=== PATIENT | male | born 1955 | race Caucasian/White ===

== ENCOUNTER → 2017-03-13 | Outpatient (CLI) | payer MEDICARE, OTHER ==
[~2017-03-13] MED LIST: ALBUTEROL17 GM INH; ALDACTONE PO; AMARYL2 MG PO; AMIODARONE PO; AMOXICILLIN500 M1 PO; BARACLUDE0.5 MG PO; BROMPHED PO; BUMEX1 MG PO; CARDIZEM SR PO; CARTIA XT120 MG PO; COLACE; CORDARONE200 M1 PO; COUMADIN PO; COUMADIN2.5 MG PO; COUMADIN5 MG PO; DIABETIC MED; DIGOX0.25 MG PO; FUROSEMIDE40 MG PO; GLIMEPIRIDE2 MG PO; GLUCOPHAGE500 M1 PO; GLUCOPHAGE500 MG PO; JANUVIA PO; K-DUR20 ME2 PO; K-TAB ER20 MEQ PO; KCL PO; LANOXIN PO; LISINOPRIL10 MG PO; LISINOPRIL2.5 MG PO; LISINOPRIL5 MG PO; LOVENOX100 MG/1 M SUBQ; METFORMIN PO; METOPROLOL SUC100 MG PO; METOPROLOL TAR25 MG PO; NICOTINE TRANSD14 MG EXT; NICOTINE TRANSD21 MG EXT; NORCO1 TAB 10/3; PROTONIX PO; TOPROL XL PO; ZITHROMAX PO; ZOLOFT PO; [UNRECOGNIZED DRUG - REMARK]
--- NOTE | ~2017-03-13 | US5 ---
[facility] A Service of [facility] & [facility] RADIOLOGY TEXT RESULTS PATIENT: ANGEL BILLY LOCATION: [facility] : 54 UNIT #: [id number] AGE: [address]: Waqar Monaco MD SEX: M ORDER DR: [id number] [facility] [address] [place], [place] [address] [id number] MR#: [id number] Acc #: [id number] NAME: ANGEL BILLY. : 1955 SEX: M STUDY DATE/TIME: 03/13/2017 7:40 UNIT: [facility] ROOM: STUDY DESCRIPTION: US Abdominal Complete Attending Physician: Waqar Monaco III, M.D. Referring Physician: Waqar Monaco III, M.D. Ordering Physician: Waqar Monaco III, M.D. Primary Care Physician: Leo Kerns M.D. MEDICAL IMAGING REPORT This report is preliminary unless electronic signature is present EXAM Complete abdominal ultrasound COMPARISON February 16, [address] abdomen and pelvis dated January 13, 2009. INDICATION 61-year-old male with generalized abdominal pain for 7 months. History of hepatitis C virus with recent completion of 12-week treatment yesterday. FINDINGS The aorta is normal in caliber at the level of the liver measuring up to 2.9 cm. Expected arterial flow was demonstrated in the aorta. They aorta is normal in caliber at its mid aspect measuring 2.1 cm. The IVC is patent at the level of the liver. Pancreas is not well seen due to shadowing from bowel gas. Hepatic contour appears irregular, suggestive of cirrhosis. There is a trace right pleural effusion and a small amount of perihepatic ascites. The liver is echogenic consistent with steatosis. Portal architecture is not well seen. There is suspected flow direction waveform in the main portal vein. The gallbladder is contracted, limiting evaluation. There is apparent recanalization of the umbilical vein consistent with portal hypertension. There is mild hepatomegaly with hepatic length of 16.6 cm. No pericholecystic fluid is seen. No shadowing cholelithiasis. Gallbladder wall is thickened at 5 mm. Second measurement gives 6 mm for gallbladder wall thickness. Common bile duct caliber is normal at 4 mm. Kidneys are normal in size and cortical thickness. No evidence of hydronephrosis. Top normal size of the spleen measuring up to 14.7 cm length. Second measurement of the spleen is 16.3 cm in length, consistent with mild splenomegaly. Expected flow direction in the patent splenic vein. Small amount of perisplenic ascites. IMPRESSION 1. Findings most consistent with cirrhosis and portal hypertension [facility] A Service of [facility] RADIOLOGY TEXT RESULTS PATIENT: ANGEL BILLY LOCATION: [facility] : 54 UNIT #: [id number] AGE: [address]: Waqar Monaco MD SEX: M ORDER DR: including trace ascites in both upper quadrants of the abdomen. There is mild splenomegaly and recanalization of the umbilical vein. 2. Trace right pleural effusion. 3. Urinary bladder is not imaged. The gallbladder appears mildly contracted. There is diffuse gallbladder wall thickening measuring up to 6 mm which was not appreciated previously. This is a finding which can be seen in portal hypertension and viral hepatitis. There is no evidence of cholelithiasis and biliary caliber is normal. Clinical correlation to exclude signs of acute cholecystitis recommended. If indicated nuclear medicine biliary scan could be performed. Dictated by... Srinivas Trujillo M.D. THIS IS AN ELECTRONICALLY VERIFIED REPORT Srinivas Trujillo M.D. at 03/18/2017 11:48 AM AL/benja TD: 03/14/2017 00:08 JOB #: [id number] MEDICAL IMAGING REPORT Page 1 of 1 COPY
== END | disposition home or self-care (01) ==
LOC: CGUS 07:10
DX: B18.2 Chronic viral hepatitis C (principal); R16.1 Splenomegaly, not elsewhere classified; K82.8 Other specified diseases of gallbladder
CPT/HCPCS: 76700

== ENCOUNTER 2017-03-16 20:28 | Inpatient (IN) | payer MEDICARE, OTHER ==
[~2017-03-16] VITALS: Ht 172.7 cm; Wt 100.0 kg
--- NOTE | ~2017-03-16 | CO ---
Unit #: [id number] #: [id number] Patient: ANGEL BILLY [id number] [address] [place], [place] [address] [id number] I MR#: [id number] NAME: ANGEL BILLY. ROOM: 332 Age: 61 Sex: M Admission Date: 03/17/2017 : 1955 Attending Physician: Ana Rios M.D. Primary Care Physician: Leo Kerns M.D. Consultation Date: 03/17/2017 CONSULTATION REPORT BRIEF HISTORY The patient is a 53-year-old gentleman, who presents with a 4-day history of abdominal pain. His presenting complaint is chest pain, but says abdominal pain in the right lower quadrant to right flank. He describes it as crampy, nonradiating. Some nausea. No vomiting. No diarrhea. No blood per rectum. No hematemesis. No fevers or chills. PAST MEDICAL HISTORY Cardiac dysfunction with mitral valve replacement, pacemaker AICD. Also hypertension and hepatitis C with cirrhosis. MEDICATIONS Glucophage, Coumadin, Cordarone, Toprol, lisinopril. SOCIAL HISTORY No smoking. No alcohol. FAMILY HISTORY Negative for GI malignancy. REVIEW OF SYSTEMS No cardiopulmonary complaints at this time. Else, 10 systems reviewed and negative. PHYSICAL EXAMINATION GENERAL: He is awake, alert, appropriate, currently afebrile. HEENT: Unremarkable. NECK: Supple. No JVD. Trachea midline. LUNGS: Clear to auscultation. Bilateral breath sounds symmetric. CARDIOVASCULAR: Regular rate and rhythm. ABDOMEN: Mildly distended. There is no rebound. No masses palpable. No hernias. EXTREMITIES: No clubbing, cyanosis, or edema. DIAGNOSTIC STUDIES LABORATORY RESULTS: Show white count of 4, hemoglobin of 11.1. Chemistries are normal other than mild elevation of AST and alkaline phosphatase. Bilirubin is normal. INR is 1.3. IMAGING STUDIES: Ultrasound shows cirrhosis. No gallstones. No gallbladder thickening. ASSESSMENT Right lower quadrant abdominal pain. Doubt cholecystitis. Unit #: [id number] #: [id number] Patient: ANGEL BILLY PLAN Recommend HIDA scan. Would not perform with CCK. The patient is at high risk for elective cholecystectomy secondary to cirrhosis. We will consider EGD. Dictated by... Nikole Reyes/susanna TD: 03/17/2017 11:38 JOB #: [id number] CONSULTATION REPORT Page 1 of 1 X Helio Whaley MD X CONSULTATION REPORT
--- NOTE | ~2017-03-16 | CO ---
Unit #: [id number] #: [id number] Patient: ANGEL BILLY [id number] [address] [place], [place] [address] [id number] I MR#: [id number] NAME: ANGEL BILLY. ROOM: 332 Age: 61 Sex: M Admission Date: 03/17/2017 : 1955 Attending Physician: Walker Tobar M.D. Primary Care Physician: Leo Kerns M.D. Consultation Date: 03/17/2017 CONSULTATION REPORT REASON FOR CONSULTATION Acute on chronic systolic congestive heart failure and some atypical chest pain. HISTORY OF PRESENT ILLNESS This is a 61-year-old white male who is well known to Dr. Pepe, has a history of severe nonischemic cardiomyopathy, on his last echo is ejection fraction was 15% to 20%. The patient has a history of mechanical mitral valve replacement back in 1999 and permanent atrial fibrillation is on anticoagulation. The patient also has liver cirrhosis and hepatitis C. He is diabetic, referred smoker, patient came in with abdominal pain and after he arrived he said he had some pain in his left axillary region. According to the patient, he had been doing fairly well recently and he has not drank any alcohol in some time. The patient developed right quadrant pain, especially in the right upper quadrant. Yesterday he said it was waxing and waning. He had associated symptoms of some slight shortness of breath. He denies any nausea or vomiting. He has not had any palpitations, no dizziness, presyncope, or syncope. No cough, fever or chills. The patient states he has been compliant with his medical regimen. He follows his liver doctor. In the emergency room, in reference to his pain under the left axilla region, he denies any radiation of the pain in his substernal chest wall but it is in the neck, bilateral jaw, shoulders, arms or elbow. He denies any palpitations, no dizziness, presyncope or syncope. No recent cough, fever, or chills. In the emergency room, patient's blood pressure was 127/86, heart rate 94, respirations 16, temperature 98.5, O2 sat was 94% on room air. His EKG shows 2:1 atrial flutter with ventricular rates 125 BPM. The patient's initial cardiac enzymes are negative. His BMP is 322. His creatinine is 1.2. Patient's WBCs are 4.4, hemoglobin down to 10 and platelets are 75. Patient's had a CT of the abdomen and pelvis, which showed bilateral pleural effusions, slightly larger than a few days ago, also with cirrhosis with portal hypertension and splenomegaly. Edematous gallbladder. Patient was given Lasix 40 mg IV and will be admitted with acute on chronic systolic heart failure and evaluate for a cholecystitis and his abdominal pain. Cardiology consult assists with evaluation and management. PAST MEDICAL HISTORY 1. Severe nonischemic cardiomyopathy with LVEF of 15% to 20%. 2. History of mechanical mitral valve replacement in 1999. 3. Prominent atrial fibrillation. Unit #: [id number] #: [id number] Patient: ANGEL BILLY 4. September 2013, 2D echo, LVEF of 15% to 20% with mechanical mitral valve not well visualized. Moderate tricuspid regurgitation and mild aortic regurgitation. Mild to moderate pulmonic regurgitation with elevated RVSP 40 to 50 mmHg. 5. History of nonsustained ventricular tachycardia. 6. History of liver cirrhosis and hepatitis C. 7. Cardiac cath back in 1999 showed no blockages. 8. Stress test, a few years since the mitral valve replacement, was told normal. Details unavailable. 9. TIA versus a small stroke about two years after his mitral valve replacement with minimal residual. 10. Diabetes mellitus type 2. 11. Reformed smoker. 12. He denies alcohol abuse. PAST SURGICAL HISTORY Mitral valve replacement and AICD implantation. FAMILY HISTORY Has had coronary artery disease in his father. HOME MEDICATIONS Glucophage 500 mg p.o. twice daily; Januvia 100 mg p.o. daily; Coumadin 5 mg p.o. daily, except not on Friday; metoprolol 150 mg p.o. twice daily; lisinopril 10 mg p.o. daily; Cartia XT 120 mg p.o. twice daily; entecavir 0.5 mg p.o. daily; furosemide 40 mg p.o. daily. ALLERGIES No known drug allergies. SOCIAL HISTORY The patient lives in his home alone. He quit smoking about a year and a half ago and states that he has been a long time, no drink, nonalcohol use and denies illicit drug abuse. He had previously smoked one pack of cigarettes a day since he was a teenager. REVIEW OF SYSTEMS See details on HPI. PHYSICAL EXAMINATION GENERAL: Mr. Billy is a 61-year-old white male in no acute respiratory distress. He is awake, alert and oriented. VITAL SIGNS: Blood pressure currently is 119/84, respirations 18, heart rate is 122, temperature is 98.1, O2 sats 97% on room air. NECK: Trachea midline. No thyromegaly. No lymphadenopathy. Normal carotid upstrokes. No jugular venous distention. HEART: S1 and S2. Regular rate and rhythm, except he is in atrial 2:1 flutter. ABDOMEN: Soft, slightly firm, distended, tenderness with palpating right quadrant area. EXTREMITIES: Pedal pulses are palpable. 1+ pedal edema. DIAGNOSTIC STUDIES LABORATORY STUDIES: Glucose is 94, BUN 22, creatinine 1.2. EGFR is 64.4, sodium 133, potassium 3.7, chloride 100, CO2 27, calcium 9.2, total protein 6.2, albumin 3.5, bili total 1.2, AST 39, ALT 26, and alk phos is 152. Lipase is 24, BNP 322, WBC are 3.7, hemoglobin 10.0, hematocrit 30.5 and platelets 75. CK-MB is less than 1.0. Troponin less than 0.05. Unit #: [id number] #: [id number] Patient: ANGEL BILLY ProTime is 14.1 with an INR of 1.3. IMAGING STUDIES: Chest x-ray shows cardiomegaly, some mild pleural effusion in the left lateral lungs. CT of abdomen and pelvis shows bilateral pleural effusions, slightly larger from compared 03/11/2017 with consolidations in the lower lobes, probable due to atelectasis, cirrhosis with portal hypertension and splenomegaly. Edematous gallbladder. CARDIOLOGY STUDIES: EKG shows atrial flutter with a 2:1 conduction with ventricular rate of 122 BPM. IMPRESSION 1. Abdominal pain, questionable cholecystitis. 2. Acute on chronic systolic congestive heart failure. 3. History of nonischemic cardiomyopathy, left ventricular ejection fraction of 15% to 20%. 4. History of mechanical and mitral valve replacement. 5. Automatic implantable cardioverter defibrillator implantation. 6. Subtherapeutic INR. 7. History of nonsustained ventricular tachycardia. 8. History of elevated cirrhosis and hepatitis C. 9. Last cardiac catheterization in 2000 was normal. 10. Previous transient ischemic attack versus a small stroke, without residual. 11. Diabetes mellitus type 2. 12. Reformed smoker. PLAN 1. Cardiology consult assisted with evaluation and management. Continue to gently diurese with IV Lasix. Strict intake, output and daily weights. Reinforce 1800 mL fluid restriction. 2. Continue to monitor cardiac enzymes and EKG. So far his cardiac enzymes have been negative. Patient has a little bit of atypical chest pain on his left anterior chest wall without radiation and it resolved. 3. Patient will continue to monitor but, however, will hold off on any ischemic heart disease, workup since it was somewhat atypical and he was treating him for congestive heart failure. 4. Patient's INR is subtherapeutic and will start on Lovenox until his INR is in the therapeutic range for his valve. The Coumadin is on hold; however, because of possible GI workup. He is planned for a HIDA scan of his gallbladder today and EGD tomorrow. 5. Provide CHF eduction with patient. 6. If his gallbladder is unremarkable maybe, possibly he may get to be discharged home tomorrow. 7. Further recommendations pending with Dr. Pepe. 8. As far as his atrial flutter, continue the patient on his metoprolol, which is 150 mg p.o. twice daily, along with his cardiac XT 120 mg twice daily. Thank you very much for allowing us to assist in his care. Unit #: [id number] #: [id number] Patient: ANGEL BILLY Dictated by... Scott BainsPLazaraRLazaraNNikole Patrick/beth TD: 03/18/2017 06:42 JOB #: [id number] CONSULTATION REPORT Page 1 of 1 X Ivory Tirado APRN CONSULTATION REPORT
--- NOTE | ~2017-03-16 | CT2 ---
[facility] A Service of [facility] & [facility] RADIOLOGY TEXT RESULTS PATIENT: ANGEL BILLY LOCATION: C3A 332-01 : 53 UNIT #: [id number] AGE: [address]: Walker Tobar MD SEX: M ORDER DR: [id number] [facility] [address] [place], [place] [address] [id number] I MR#: [id number] Acc #: [id number] NAME: ANGEL BILLY. : 1955 SEX: M STUDY DATE/TIME: 03/16/2017 23:08 UNIT: A U ROOM: [facility] STUDY DESCRIPTION: CT Abd and Pelv W Cont Attending Physician: Walker Tobar M.D. Ordering Physician: Helio Lo M.D. Primary Care Physician: Leo Kerns M.D. MEDICAL IMAGING REPORT This report is preliminary unless electronic signature is present EXAM Abdomen and pelvis CT 03/16 at 23:08. INDICATIONS Right lower quadrant pain that started today. Foot swelling as well. History of hepatitis C and cirrhosis. TECHNIQUE Axial images were obtained through the abdomen and pelvis following oral and IV contrast administration. Multiplanar reformats were obtained. This CT exam was performed with one or more of the following radiation dose reduction techniques: Automatic exposure control, adjustment of mA and/or kV according to patient size, and iterative reconstruction. COMPARISON Comparison is made with 01/13/2009. FINDINGS Abdomen: There are bilateral pleural effusions, left greater than right. These are slightly worsened as compared with chest CT of 03/11/2017. Consolidations in the lower lobes are probably due to compressive atelectasis. Correlate clinically to exclude pneumonia. Gallbladder once again has a thickened wall. This is unchanged from 03/11/2017. This may simply be due to the patient's liver disease. If cholecystitis is of concern, consider HIDA scan. Liver demonstrates a cirrhotic morphology. No discrete liver mass is seen. The spleen remains enlarged. There is a right lower pole renal cyst. The GI tract is within normal limits. Pelvis: The appendix is normal. The remainder of the GI tract is normal as well. Urinary bladder is normal. There is a trace amount of free fluid. IMPRESSION [facility]. [facility] A Service of [facility] & [facility] RADIOLOGY TEXT RESULTS PATIENT: ANGEL BILLY LOCATION: C3A 332-01 : 53 UNIT #: [id number] AGE: [address]: Walker Tobar MD SEX: M ORDER DR: 1. Bilateral pleural effusions, slightly larger as compared with chest CT from 03/11/2017. Consolidations in the lower lobes are probably due to atelectasis but pneumonia should be excluded clinically. 2. Cirrhosis with portal hypertension and splenomegaly. No focal liver lesion is seen. 3. Edematous gallbladder as seen on recent chest CT as well. This may simply be the result of the patient's liver disease. If acute cholecystitis is of concern clinically, consider HIDA scan for further evaluation. 4. Trace amount of free fluid in the abdomen and pelvis. 5. GI tract including the appendix is within normal limits. ADDENDUM There are some shotty retroperitoneal lymph nodes which are not significantly changed from the 2009 study. Dictated by... Raul Almanza Jr., M.D. THIS IS AN ELECTRONICALLY VERIFIED REPORT Raul Almanza Jr., M.D. at 03/17/2017 9:09 PM DEEDEE/nola TD: 03/17/2017 10:15 JOB #: [id number] MEDICAL IMAGING REPORT Page 1 of 1 COPY
--- NOTE | ~2017-03-16 | HP ---
Unit #: [id number] #: [id number] Patient: ANGEL BILLY [id number] [address] [address] [id number] MR#: [id number] NAME: ANGEL BILLY. ROOM: 332 Age: 61 Sex: M Admission Date: 03/17/2017 : 1955 Attending Physician: Walker Tobar M.D. Primary Care Physician: Leo Kerns M.D. HISTORY AND PHYSICAL CHIEF COMPLAINT Abdominal pain and atypical chest pain. HISTORY OF PRESENT ILLNESS This is a 61-year-old male with multiple medical problems, including coronary artery disease, atrial fibrillation, mechanical mitral valve replacement, severe nonischemic cardiomyopathy, hyperlipidemia, liver cirrhosis and hepatitis C, diabetes mellitus. Came because of epigastric pain. The patient has been having this right abdominal pain, epigastric pain for the last 4 days. It was associated with nausea. No vomiting. He did not have any diarrhea. No blood in the stool and no black colored stool. According to the patient, at this time he has no pain and he would like to eat. He is not complaining of any chest pain either. He did have slight pain in the left chest area, also, and he was worried about his heart and wanted to make sure there was no heart problem. His legs have been swelling for the last few days, worse than normal. The patient was found to have sinus tachycardia and bilateral pleural effusion and was admitted. PAST MEDICAL HISTORY 1. The patient has significant coronary artery disease. 2. Atrial fibrillation. 3. Valvular heart disease status post mechanical mitral valve replacement in 1999. 4. Anticoagulation therapy with Coumadin. 5. Congestive heart failure with nonischemic cardiomyopathy with ejection fraction of 25% to 30%. 6. History of AICD placement in 2013. 7. History of hepatitis C. 8. History of cirrhosis. 9. Hyperlipidemia. PAST SURGICAL HISTORY 1. History of mitral valve replacement in 1999. 2. History of AICD placement in 2013. ALLERGIES No known drug allergies. SOCIAL HISTORY The patient has a past history of smoking; quit 2 years ago. No history of alcohol abuse or drug abuse. FAMILY HISTORY Unit #: [id number] #: [id number] Patient: BILLY,ANGEL O Father had coronary artery disease. REVIEW OF SYMPTOMS Denies any fever, chills or rigors. No recent weight gain or weight loss. No headache. No dizziness. No syncopal episode. No chest pain at this time, but he did have some substernal chest discomfort earlier before admission. No palpitations. No dizziness. He does not complain of shortness of breath. No complaint of diarrhea or constipation. He does complain of bilateral leg swelling. MEDICATIONS 1. Glucophage 500 mg b.i.d. 2. Januvia 100 mg daily. 3. Coumadin 5 mg daily. 4. Metoprolol 150 mg b.i.d. 5. Lisinopril 10 mg daily. 6. Cartia 120 mg b.i.d. 7. Baraclude 0.5 mg daily. 8. Furosemide 14 mg daily. PHYSICAL EXAMINATION GENERAL: The patient is being evaluated in room 332. Seems to be stable. No respiratory distress. VITAL SIGNS: Blood pressure 119/83, respiratory rate 20, pulse 123, temperature 98.1, oxygen saturation 97%. HEENT: Head is normocephalic. Eye movements are normal. NECK: Neck is supple. No JVD. RESPIRATORY: Chest has fair air entry. Decreased at the bases. Rales are present. CVS: S1, S2 positive. Mechanical valve is heard. ABDOMEN: Soft. At this time no tenderness. No rigidity. No rebound. EXTREMITIES: Bilateral pedal edema is present. FARM [employer]: Awake, alert, oriented x3. No focal neurologic deficits. DIAGNOSTIC STUDIES LAB WORKUP: WBC 3.7, hemoglobin 10, hematocrit 30.5, platelet count 75. Sodium 133, potassium 3.7, chloride 100, BUN 22, creatinine 1.2. BNP 322. IMAGING: CT scan of the abdomen and pelvis was done that showed bilateral pleural effusion and cirrhosis, edematous gallbladder. ASSESSMENT AND PLAN 1. The patient is being admitted to telemetry unit with abdominal pain, rule out cholecystitis, although unlikely. Hepato-iminodiacetic acid scan has been ordered. [facility] has been consulted. Pain management and antiemetic as needed. 2. Acute on chronic systolic congestive heart failure with ejection fraction of 15% to 20%. IV Lasix is being started. Strict ins and outs. Lovenox 1 mg per kg subcu b.i.d. is being started. Dr. Pepe has been consulted. 3. Atrial flutter with rapid ventricular rate. The patient did not receive his beta-blockers in the morning because of NPO. Medications will be adjusted. 4. Anticoagulation therapy, which is subtherapeutic. That is why the patient is being started on Lovenox 1 mg/kg body weight subcu b.i.d. We are holding Coumadin in case the patient requires any surgical procedure. 5. Diabetes mellitus type 2. Continue Accu-Cheks a.c./h.s. with insulin Unit #: [id number] #: [id number] Patient: ANGEL BILLY sliding scale low-dose protocol. The plan of care has been discussed with the patient at length. Dictated by Nikole Priest/denzel TD: 03/17/2017 11:14 JOB #: [id number] HISTORY AND PHYSICAL Page 1 of 1 X Ana Rios MD X HISTORY AND PHYSICAL
--- NOTE | ~2017-03-16 | OR ---
Unit #: [id number] #: [id number] Patient: ANGEL BILLY [id number] [address] [place], [place] [address] [id number] I MR#: [id number] NAME: ANGEL BILLY. ROOM: [facility] Date of Procedure: 03/18/2017 Admission Date: 03/17/2017 Surgeon: Angel Luis Ramirez M.D. : 1955 Attending Physician: Ana Rios M.D. Primary Care Physician: Leo Kerns M.D. OPERATIVE REPORT PREOPERATIVE DIAGNOSIS Epigastric pain. POSTOPERATIVE DIAGNOSIS Epigastric pain. PROCEDURE PERFORMED 1. Esophagogastroduodenoscopy. 2. Biopsy of antrum for Helicobacter pylori testing and pathology. ANESTHESIA Monitored anesthesia care. FINDINGS The patient was found to have moderate diffuse gastritis. SPECIMENS Sent to pathology. COMPLICATIONS None apparent. CONDITION The patient tolerated the procedure well. INDICATIONS FOR PROCEDURE The patient is a 62-year-old white male with a history of cirrhosis. He presents at this time with epigastric pain, which has improved dramatically. He had evaluation of his gallbladder and had evaluation by CT scan with no significant findings. A HIDA scan showed the gallbladder to fill normally. He presents at this time for evaluation by upper endoscopy. DESCRIPTION OF PROCEDURE After obtaining informed consent, the patient was brought to the endoscopy suite and after adequate monitored anesthesia care, had the endoscope placed through the mouth into the upper esophagus under direct vision. It was advanced to the second portion of the duodenum without difficulty with lumen always in view. The duodenum was normal as was duodenal bulb. The pylorus opened normally. On pulling back into the stomach, there was moderate diffuse gastritis present. A biopsy was obtained from the antrum for Helicobacter pylori testing as well as pathology. On retroflexion Unit #: [id number] #: [id number] Patient: ANGEL BILLY back to the GE junction, there was no abnormality seen in the proximal third, middle third, or incisura other than moderate gastritis. The scope was pulled back above the GE junction. There was no stenosis, stricture, or neoplasm or evidence of esophagitis. The remaining portion of the esophagus was within normal limits. Laryngeal structures were grossly normal as viewed from above. At this point in time, the patient went from the endoscopy suite to recovery area in stable condition. RECOMMENDATIONS Healthy heart diet, Protonix 40 mg p.o. daily. Dictated by... Nikole Cruz/susanna TD: 03/18/2017 13:20 JOB #: [id number] [facility] OPERATIVE REPORT Page 1 of 1 X Angel Luis Ramirez MD X PROCEDURE OPERATIVE NOTE
--- NOTE | ~2017-03-16 | EKG ---
PATIENT: ANGEL BILLY UNIT #: [id number] Ventricular Rate: 125 BPM Atrial Rate: 125 BPM P-R Interval: 120 ms QRS Duration: 96 ms Q-T Interval: 342 ms QTC Calculation(Bezet): 493 ms Calculated R [place]: 92 degrees Calculated T [place]: 119 degrees Diagnosis Line: Sinus tachycardia Diagnosis Line: Rightward axis Diagnosis Line: Nonspecific ST abnormality Diagnosis Line: Abnormal ECG Diagnosis Line: When compared with ECG of 23-SEP-2016 21:40, Diagnosis Line: Vent. rate has increased BY 96 BPM Diagnosis Line: Nonspecific T wave abnormality now evident in Diagnosis Line: Inferior leads Diagnosis Line: T wave inversion no longer evident in Anterior Diagnosis Line: leads Diagnosis Line: Confirmed by MARILUZ HARRIS MD ([id number]) on Diagnosis Line: 03/17/2017 7:54:48 AM INTERPRETING MD: STEVEN BERNARD
--- NOTE | ~2017-03-16 | CR72 ---
[facility] A Service [facility] RADIOLOGY TEXT RESULTS PATIENT: ANGEL BILLY LOCATION: [facility] 332-01 : 54 UNIT #: [id number] AGE: [address]: Walker Tobar MD SEX: M ORDER DR: [id number] [facility] [address] [facility]. [place], [place] [address] [id number] I MR#: [id number] #: [id number] NAME: ANGEL BILLY. : 1955 SEX: M STUDY DATE/TIME: 03/16/2017 21:23 UNIT: [address] ROOM: [facility] STUDY DESCRIPTION: CR Chest Single View Portable Attending Physician: Walker Tobar M.D. Ordering Physician: Helio Lo M.D. Primary Care Physician: Leo Kenrs M.D. MEDICAL IMAGING REPORT This report is preliminary unless electronic signature is present EXAM Single view of the chest dated 03/16/17 COMPARISON: Singe view chest dated 03/11/17 HISTORY Chest and abdominal pain for four days. [id number] hepatitis C treated on Friday. FINDINGS Frontal view of the chest was obtained. Redemonstrated is the cardiomegaly, sternotomy wires and postoperative changes with borderline size to mild cardiomegaly. Previously noted opacity in the left lateral lower chest suggestive of mild pleural effusion is again noted without any significant interval worsening. The stable minimal prominence of the bronchovascular markings in this poor inspiratory film without any significant new abnormality. Redemonstrated is the pacemaker in place in the left upper chest. Dictated by... Anmol Martin M.D. THIS IS AN ELECTRONICALLY VERIFIED REPORT Anmol Martin M.D. at 03/17/2017 7:34 PM CPR/cmm TD: 03/17/2017 09:11 JOB #: [id number] MEDICAL IMAGING REPORT [facility] A Service [facility] RADIOLOGY TEXT RESULTS PATIENT: ANGEL BILLY LOCATION: [facility] 332-01 : 54 UNIT #: [id number] AGE: [address]: Walker Tobar MD SEX: M ORDER DR: Page 1 of 1 COPY
--- NOTE | ~2017-03-16 | DS ---
Unit #: [id number] #: [id number] Patient: ANGEL BILLY [id number] [address] [place], [place] [address] [id number] I MR#: [id number] NAME: ANGEL BILLY. ROOM: 332 Age: 61 Sex: M Admission Date: 03/17/2017 : 1955 Discharge Date: 03/18/2017 Attending Physician: Ana Rios M.D. Primary Care Physician: Leo Kerns M.D. DISCHARGE SUMMARY FINAL DIAGNOSES 1. Abdominal pain which is resolved. 2. Status post esophagogastroduodenoscopy which showed gastritis. 3. Acute on chronic systolic congestive heart failure with ejection fraction of 15 to 20%. 4. Nonischemic cardiomyopathy status post AICD placement. 5. Permanent atrial fibrillation. 6. History of mechanical mitral valve replacement. It was done in 1999. 7. Anticoagulation therapy which was subtherapeutic. 8. History of chronic liver disease, cirrhosis, hepatitis C. 9. Diabetes mellitus type 2. DISCHARGE MEDICATIONS 1. Lovenox 100 mg subcu q.12. 2. Warfarin 5 mg daily. 3. Glucophage 500 mg b.i.d. 4. Januvia 100 mg daily. 5. Cartia 120 mg twice a day. 6. Metoprolol 150 mg twice a day. 7. Metoprolol 150 mg twice a day. 8. Furosemide 40 mg twice a day. 9. Lisinopril 10 mg daily. 10. Baraclude 0.5 mg daily. 11. Protonix 40 mg daily. CONSULTATION DURING HOSPITALIZATION 1. Dr. Ramirez from [facility]. 2. Dr. Pepe from [facility]. LAB WORKUP ON DISCHARGE Sodium 137, potassium 3.8, chloride 100, BUN 22, creatinine 1.2. PT and INR are 14.4 and 1.3. CBC shows WBC 3.7, hemoglobin 10.0, hematocrit 30.5 and platelet count of 75. Troponin less than 0.03. CT scan of the abdomen and pelvis was done on 03/16/2017 which showed bilateral pleural effusion. Consolidation in the lower lobe. Edematous gallbladder is seen. Cirrhosis with portal hypertension is seen. HIDA scan with CK was done that showed no evidence for cystic duct obstruction. HOSPITAL COURSE 61-year-old male was admitted with abdominal pain. There was a question of atypical chest pain. Acute ME was ruled out. Dr. Peep was consulted. The patient was diagnosed with acute congestive heart failure. The patient was given IV diuretics. He is doing much better at this time. Unit #: [id number] #: [id number] Patient: ANGEL BILLY The patient's pain has improved. Reason for abdominal pain is unclear at this time. The patient's gallbladder seems to be stable. HIDA scan is negative. The patient will see Dr. Ramirez as outpatient. The patient had EGD done which showed diffuse gastritis. The patient is being discharged home on Protonix 40 mg daily. The patient would like to go home today. EXAMINATION ON DISCHARGE GENERAL APPEARANCE: The patient is awake, alert, oriented x3. VITAL SIGNS: Blood pressure 116/79. Respiratory rate 20. Temperature 98.6. Pulse 84. CHEST: S1, S2 positive. Irregular rhythm. Click of valve is present. PULMONARY: Clear to auscultation. ABDOMEN: Soft. EXTREMITIES: Edema is present, although it has improved a lot. DISCHARGE INSTRUCTIONS 1. The patient is being discharged home in stable condition. 2. Medication as per medication reconciliation. 3. Follow up with primary care provider in one week. 4. Follow up with Dr. Pepe on 05/05/17 at 12:15 p.m. 5. post exchange manager for Lovenox prescription cost. 6. Discontinue Lovenox once INR is 2.5 and above. 7. PT and INR in two days. 8. Follow up with Dr. Ramirez, [facility], in one to two weeks. 9. Patient gets his Protime done at Dr. Pepe's office. 10. Plan of care has been discussed with patient and patient's family at length. He does verbalize understanding. Dictated by... Nikole Priest TD: 03/20/2017 10:57 JOB #: [id number] DISCHARGE SUMMARY Page 1 of 1 X Ana Rios MD X DISCHARGE SUMMARY
--- NOTE | ~2017-03-16 | NM22 ---
[facility] A Service of [facility] RADIOLOGY TEXT RESULTS PATIENT: ANGEL BILLY LOCATION: [facility] 332 : 54 UNIT #: [id number] AGE: [address]: Ana Rios MD SEX: M ORDER DR: [id number] [place], [place] [address] [id number] I MR#: [id number] Acc #: [id number] NAME: ANGEL BILLY. : 1955 SEX: M STUDY DATE/TIME: 03/17/2017 8:44 UNIT: [facility] ROOM: [facility] STUDY DESCRIPTION: NM Hepatobiliary W GB Pharm Attending Physician: Walker Tobar M.D. Ordering Physician: Helio Whaley M.D. Primary Care Physician: Leo Kerns M.D. MEDICAL IMAGING REPORT This report is preliminary unless electronic signature is present EXAM Hepatobiliary scan HISTORY Cirrhosis. Right-sided abdominal pain since last Friday. TECHNIQUE Patient was administered 5.48 mCi technetium-labeled Choletec. Imaging of the upper abdomen was performed for 16 minutes. Gallbladder stimulation was not performed per order request. COMPARISON STUDIES Ultrasound from 03/13/2017. FINDINGS Liver shows symmetric extraction and excretion of radiotracer. Gallbladder fills by 30 minutes. Activity is seen accumulating in the bowel. IMPRESSION No evidence for cystic duct obstruction. Dictated by... Vickey Garcia M.D. THIS IS AN ELECTRONICALLY VERIFIED REPORT Vickey Garcia M.D. at 03/18/2017 8:28 AM EED/pcl TD: 03/17/2017 16:43 JOB #: [id number] [facility] A Service [facility] RADIOLOGY TEXT RESULTS PATIENT: ANGEL BILLY LOCATION: [facility] 332- : 54 UNIT #: [id number] AGE: [address]: Ana Rios MD SEX: M ORDER DR: MEDICAL IMAGING REPORT Page 1 of 1 COPY
[~2017-03-16 20:28] MED LIST changes: -BARACLUDE0.5 MG PO; -FUROSEMIDE40 MG PO; -K-TAB ER20 MEQ PO; -LOVENOX100 MG/1 M SUBQ; -PROTONIX PO
[2017-03-16] MEDS ORDERED: FUROSEMIDE40 MG PO (21:00)
[2017-03-16] MEDS ORDERED: BARACLUDE0.5 MG PO (21:00)
[2017-03-16 21:09] LABS: POC - CKMB <1.0 ng/mL (0.0-7.9); POC - TROPONIN <0.05 ng/mL (<=0.05)
[2017-03-16 21:24] LABS: BASOPHIL% 0.5 % (0-2.5); EOSINOPHIL# 0.1 X10e3 (0-0.7); EOSINOPHIL% 2.4 % (0.0-7.0); HEMATOCRIT 33.2 % (38.0-50.0); HEMOGLOBIN 11.1 gm/dL (13.0-16.0); LYMPHOCYTE# 0.8 X10e3 (1.0-3.5); LYMPHOCYTE% 18.5 % (17.0-45.0); MEAN CORPUSCULAR HEMOGLOBIN 31.4 PG (28-34); MEAN CORPUSCULAR HGB CONC 33.4 g/dL (30-36); MONOCYTE# 0.6 X10e3 (0-1.0); MONOCYTE% 14.1 % (3.0-12.0); NEUTROPHIL# 2.8 X10e3 (1.5-7.1); NEUTROPHIL% 64.5 % (40-75); RED BLOOD COUNT 3.53 X10e (3.90-5.60); RED CELL DISTRIBUTION WIDTH 15.6 % (11.0-15.5); WHITE BLOOD COUNT 4.4 X10e3 (4.0-10.5)
[2017-03-16 21:25] LABS: PLATELET COUNT 91 X10e3 (140-420)
[2017-03-16 21:26] LABS: DIFF IND YES
[2017-03-16 21:31] LABS: PLATELET ESTIMATE DECREASED (NORMAL); RBC NORMAL YES
[2017-03-16 21:38] LABS: INR 1.3; PARTIAL THROMBOPLASTIN TIME 28.2 SECONDS (23.5-31.3); PROTHROMBIN TIME (PATIENT) 14.1 SECONDS (10.0-11.7)
[2017-03-16 21:40] LABS: ALBUMIN SERUM 3.7 g/dL (3.5-5.0); BILIRUBIN, DIRECT 0.3 mg/dL (0.0-0.2); BILIRUBIN,TOTAL 1.3 mg/dL (0.2-2.0); BUN/CREATININE RATIO 16.92; CALCIUM SERUM 9.4 mg/dL (8.4-10.2); CREATININE SERUM 1.3 mg/dL (0.6-1.4); GLOM FILT RATE Estimated 58.5 mL/min (>60); POTASSIUM 4.3 mmol/L (3.5-5.1); PROTEIN TOTAL SERUM 6.6 g/dL (6.0-8.3)
[2017-03-16 22:52] LABS: URINE SOURCE CLEAN CATCH
[2017-03-16 23:06] LABS: URINE APPEARANCE CLEAR; URINE COLOR YELLOW
[2017-03-16 23:11] LABS: URINE LEUKOCYTE ESTERASE NEG (NEG); URINE NITRATE NEG (NEG)
[2017-03-16 23:12] LABS: CULTURE INDICATED? NO; URINE BILIRUBIN NEG (NEG); URINE BLOOD NEG (NEG); URINE GLUCOSE NORM (NEG); URINE KETONE NEG (NEG); URINE PROTEIN NEG (NEG); URINE UROBILINOGEN NORM (NEG)
[2017-03-17 07:02] LABS: BASOPHIL% 0.5 % (0-2.5); EOSINOPHIL# 0.1 X10e3 (0-0.7); EOSINOPHIL% 2.4 % (0.0-7.0); HEMATOCRIT 30.5 % (38.0-50.0); LYMPHOCYTE# 0.7 X10e3 (1.0-3.5); LYMPHOCYTE% 19.8 % (17.0-45.0); MEAN CORPUSCULAR HEMOGLOBIN 30.9 PG (28-34); MEAN CORPUSCULAR HGB CONC 32.8 g/dL (30-36); MEAN PLATELET VOLUME 8.2 FL (6.5-11.5); MONOCYTE# 0.5 X10e3 (0-1.0); MONOCYTE% 12.5 % (3.0-12.0); NEUTROPHIL# 2.4 X10e3 (1.5-7.1); NEUTROPHIL% 64.8 % (40-75); PLATELET COUNT 75 X10e3 (140-420); RED BLOOD COUNT 3.24 X10e (3.90-5.60); RED CELL DISTRIBUTION WIDTH 15.5 % (11.0-15.5); WHITE BLOOD COUNT 3.7 X10e3 (4.0-10.5)
[2017-03-17 07:06] LABS: DIFF IND NO
[2017-03-17 07:17] LABS: ALBUMIN SERUM 3.5 g/dL (3.5-5.0); BILIRUBIN,TOTAL 1.2 mg/dL (0.2-2.0); BUN/CREATININE RATIO 18.33; CALCIUM SERUM 9.2 mg/dL (8.4-10.2); CREATININE SERUM 1.2 mg/dL (0.6-1.4); GLOM FILT RATE Estimated 64.4 mL/min (>60); POTASSIUM 3.7 mmol/L (3.5-5.1); PROTEIN TOTAL SERUM 6.2 g/dL (6.0-8.3)
[2017-03-18 05:44] LABS: INR 1.3; PROTHROMBIN TIME (PATIENT) 14.4 SECONDS (10.0-11.7)
[2017-03-18 05:49] LABS: BUN/CREATININE RATIO 18.33; CALCIUM SERUM 8.9 mg/dL (8.4-10.2); CREATININE SERUM 1.2 mg/dL (0.6-1.4); GLOM FILT RATE Estimated 64.4 mL/min (>60); POTASSIUM 3.8 mmol/L (3.5-5.1)
[2017-03-18] MEDS ORDERED: PROTONIX PO (16:02)
[2017-03-18] MEDS ORDERED: LOVENOX100 MG/1 M SUBQ (16:07)
[2017-03-28] MEDS ORDERED: K-TAB ER20 MEQ PO (10:39)
== END 2017-03-18 18:58 | disposition home or self-care (01) | DRG 292 ==
LOC: CED 20:28 → C3A PCU 03-17 00:20 → CEDOF 03-17 00:20 → CED 03-17 00:48 → C3A PCU 03-17 00:48 → CEDOF 03-17 07:40 → C3A PCU 03-17 07:40
PROVIDERS: Emergency Medicine; Physician Assistant Medical; Surgery
PROC: 0DB78ZX Excision of Stomach, Pylorus, Via Natural or Artificial Opening Endoscopic, Diagnostic (ICD-10-PCS; principal; 2017-03-18 07:30)
DX: I50.23 Acute on chronic systolic (congestive) heart failure (principal); I48.92 Unspecified atrial flutter; I42.8 Other cardiomyopathies; K74.60 Unspecified cirrhosis of liver; E11.9 Type 2 diabetes mellitus without complications; Z79.84 Long term (current) use of oral hypoglycemic drugs; K29.70 Gastritis, unspecified, without bleeding; Z95.810 Presence of automatic (implantable) cardiac defibrillator; I48.2 Chronic atrial fibrillation; Z79.01 Long term (current) use of anticoagulants; Z95.2 Presence of prosthetic heart valve; Z86.19 Personal history of other infectious and parasitic diseases; R10.31 Right lower quadrant pain; E78.5 Hyperlipidemia, unspecified; Z87.891 Personal history of nicotine dependence; Z86.73 Personal history of transient ischemic attack (TIA), and cerebral infarction without residual deficits; Z82.49 Family history of ischemic heart disease and other diseases of the circulatory system
CPT/HCPCS: 36415; 71010; 74177; 78227; 80048; 80053; 80076; 81003; 82553; 82947; 83690; 83880; 84484; 85025; 85610; 85730; 87077; 88305; 88312; 93005; 94760; 96374; 99285; A9537; J1650; J1815; J1940; J2250; Q9967

== ENCOUNTER 2017-04-24 12:27 | Emergency (ER) | payer MEDICARE, OTHER ==
[~2017-04-24] VITALS: Ht 177.8 cm; Wt 95.2 kg
--- NOTE | ~2017-04-24 | US84 ---
[id number] [facility]. [facility] [address] [facility]. [place], [place] [address] [id number] E MR#: [id number] Acc #: [id number] NAME: ANGEL BILLY : 1955 SEX: M STUDY DATE/TIME: 04/24/2017 15:23 UNIT: [facility] ROOM: STUDY DESCRIPTION: US LE Veins Complete Panda Stdy Attending Physician: Lincoln Mohan M.D. Ordering Physician: Lincoln Mohan M.D. Primary Care Physician: Leo Kerns M.D. MEDICAL IMAGING REPORT This report is preliminary unless electronic signature is present EXAM Bilateral lower extremity venous Doppler. HISTORY Swelling, pain bilaterally for four days. Patient on blood thinners. TECHNIQUE Venous ultrasound examination of both lower extremities was performed using grayscale, spectral Doppler and color flow Doppler imaging. FINDINGS The examination is negative. There is no evidence of deep venous thrombus from the groin to the lower calf bilaterally. Visualized greater saphenous veins are also patent. IMPRESSION Negative examination. No evidence of lower extremity DVT. Dictated by... Lebron Murdock M.D. THIS IS AN ELECTRONICALLY VERIFIED REPORT Lebron Murdock M.D. at 04/25/2017 6:53 PM TAYLOR/coy TD: 04/24/2017 20:45 JOB #: [id number] MEDICAL IMAGING REPORT Page 1 of 1 COPY
[~2017-04-24 12:27] MED LIST changes: +BARACLUDE0.5 MG PO; +FUROSEMIDE40 MG PO; +K-TAB ER20 MEQ PO; +LOVENOX100 MG/1 M SUBQ; +PROTONIX PO
[2017-04-24 15:21] LABS: BASOPHIL% 0.6 % (0-2.5); EOSINOPHIL# 0.1 X10e3 (0-0.7); EOSINOPHIL% 3.2 % (0.0-7.0); HEMOGLOBIN 10.8 gm/dL (13.0-16.0); LYMPHOCYTE# 0.7 X10e3 (1.0-3.5); LYMPHOCYTE% 19.3 % (17.0-45.0); MEAN CELL VOLUME 93.1 FL (83-96); MEAN CORPUSCULAR HEMOGLOBIN 31.4 PG (28-34); MEAN CORPUSCULAR HGB CONC 33.7 g/dL (30-36); MEAN PLATELET VOLUME 8.2 FL (6.5-11.5); MONOCYTE# 0.5 X10e3 (0-1.0); MONOCYTE% 13.5 % (3.0-12.0); NEUTROPHIL# 2.3 X10e3 (1.5-7.1); NEUTROPHIL% 63.4 % (40-75); PLATELET COUNT 95 X10e3 (140-420); RED BLOOD COUNT 3.44 X10e (3.90-5.60); WHITE BLOOD COUNT 3.7 X10e3 (4.0-10.5)
[2017-04-24 15:22] LABS: DIFF IND YES
[2017-04-24 15:26] LABS: INR 2.8; PARTIAL THROMBOPLASTIN TIME 37.3 SECONDS (23.5-31.3)
[2017-04-24 15:27] LABS: PROTHROMBIN TIME (PATIENT) 30.7 SECONDS (10.0-11.7)
[2017-04-24 15:41] LABS: BUN/CREATININE RATIO 16.92; CALCIUM SERUM 9.3 mg/dL (8.4-10.2); CREATININE SERUM 1.3 mg/dL (0.6-1.4); GLOM FILT RATE Estimated 58.5 mL/min (>60); POTASSIUM 3.9 mmol/L (3.5-5.1)
[2017-04-24 15:49] LABS: PLATELET ESTIMATE DECREASED (NORMAL)
[2017-04-24 15:50] LABS: HYPOCHROMIA SL
== END 2017-04-24 17:05 | disposition home or self-care (01) ==
LOC: CED 12:27
PROVIDERS: Emergency Medicine
DX: I87.2 Venous insufficiency (chronic) (peripheral) (principal); R60.0 Localized edema; I10 Essential (primary) hypertension; E11.9 Type 2 diabetes mellitus without complications; B19.20 Unspecified viral hepatitis C without hepatic coma; F32.9 Major depressive disorder, single episode, unspecified
CPT/HCPCS: 36415; 80048; 85025; 85610; 85730; 93970; 99285